=== PATIENT | male | born 1955 | race Caucasian/White ===

== ENCOUNTER 2019-02-22 10:08 | Observation (INO) | payer OTHER ==
[2019-02-18 13:02] LABS: BASOPHILS % 0.4 % (0.0-1.0); EOSINOPHILS # (AUTO) 0.1 (0.0-0.4); EOSINOPHILS % 1.2 % (0.0-6.0); HEMATOCRIT 41.5 % (38.2-49.6); HEMOGLOBIN 14.3 g/dL (14.0-18.0); LYMPHOCYTES # (AUTO) 1.4 (1.0-3.2); LYMPHOCYTES % 18.8 % (18.0-39.1); MEAN CORPUSCULAR HEMOGLOBIN 31.7 pg (28-32); MEAN CORPUSCULAR HGB CONC 34.5 g/dL (31-35); MONOCYTES # (AUTO) 0.9 (0.2-0.8); MONOCYTES % 12.6 % (4.4-11.3); NEUTROPHILS # (AUTO) 4.9 (2.1-6.9); NEUTROPHILS % 66.3 % (38.7-80.0); PLATELET COUNT 284 x10e3/uL (140-360); RED BLOOD COUNT 4.51 x10e6/uL (4.3-5.7); RED CELL DISTRIBUTION WIDTH 13.8 % (11.7-14.4)
[2019-02-18 13:11] LABS: INR 1.01; PARTIAL THROMBOPLASTIN TIME 32.5 seconds (23.8-35.5); PROTHROMBIN TIME 13.8 seconds (11.9-14.5)
--- NOTE | 2019-02-18 13:29 | Diagnostic Imaging Report ---
Chest, 2 views, 02/18/2019. History: Preop, prostate biopsy. Comparison: None available. Findings: The cardiomediastinal silhouette and pulmonary vasculature are within normal limits. The lungs are clear without evidence of consolidation or pleural effusion. Degenerative changes are present in the thoracic spine. There are no acute osseous or soft tissue abnormalities. Impression: No acute cardiopulmonary abnormality. Signed by: Donato Shaikh on 02/18/2019 1:25 PM
[2019-02-18 13:52] LABS: ALANINE AMINOTRANSFERASE 78 IU/L (0-55); ALBUMIN 3.9 g/dL (3.5-5.0); ALBUMIN/GLOBULIN RATIO 1.2 (0.8-2.0); ALKALINE PHOSPHATASE 65 IU/L (40-150); ANION GAP 10.9 mmol/L (8-16); BLOOD UREA NITROGEN 12 mg/dL (7-26); BUN/CREATININE RATIO 11 (6-25); CARBON DIOXIDE 29 mmol/L (22-29); CHLORIDE 101 mmol/L (98-107); CREATININE, SERUM 1.05 mg/dL (0.72-1.25); EST GLOMERULAR FILTRATION RATE > 60 ML/MIN (60-); GLUCOSE 72 mg/dL (74-118); POTASSIUM 3.9 mmol/L (3.5-5.1); SODIUM 137 mmol/L (136-145)
[~2019-02-22] VITALS: Ht 177.8 cm; Wt 108.2 kg
[~2019-02-22 10:08] MED LIST: ASPIRIN81 MG PO; BARACLUDE0.5 MG PO; CARVEDILOL12.5 MG PO; JAKAFI PO; LISINOPRIL-HCT1 EAC2 PO; METRONIDAZOLE500 MG PO; SIMVASTATIN20 MG PO
--- OUTSIDE RECORDS SUMMARY | 2019-02-22 10:10 | XMS REPORT | Clinical Summary ---
Author Author [facility] Address Unknown Phone Unavailable Care Team Providers Care Language Arts Teacher Name Role Phone Catie Roche PCP Allergies No Known Allergies Medications End Date Status Medication Sig Dispensed Refills Start Date Active simvastatin (ZOCOR) 20 MG Take 1 tablet 0 tablet by mouth daily. Active ruxolitinib (JAKAFI) 25 Take 25 mg by 0 mg chemo tablet mouth 2 (two) times a day. Active lisinopril-hydrochlorothi Take 1 tablet 0 azide by mouth 9 (PRINZIDE,ZESTORETIC) daily. 10-12.5 mg per tablet Active carvedilol (COREG) 12.5 Take 1 tablet 0 MG tablet by mouth daily. Active aspirin 81 mg chewable Chew 1 tablet 0 tablet daily. 03/24/2019 Active entecavir (BARACLUDE) 0.5 Take 1 tablet 90 tablet 1 MG tabletIndications: (0.5 mg 9 Hepatitis B infection total) by without delta agent mouth daily without hepatic coma, for 90 days. unspecified chronicity 01/25/2019 Discontinued fluticasone propionate 2 sprays 2 0 (FLONASE) 50 (two) times a 9 mcg/actuation nasal spray day. 01/25/2019 Discontinued traMADol (ULTRAM) 50 mg Take 50 mg by 0 tablet mouth every 6 9 (six) hours as needed. 12/24/2018 Discontinued entecavir (BARACLUDE) 0.5 Take 1 tablet 30 tablet 2 MG tabletIndications: (0.5 mg 9 Hepatitis B infection total) by without delta agent mouth daily without hepatic coma, for 30 days. unspecified chronicity Active Problems Not on file Encounters Care Team Description Date Type Specialty Daryl Sheldon MD Abnormal liver function test (Primary Dx); Hepatomegaly; Splenomegaly; Hepatitis B infection without delta agent without hepatic coma, unspecified chronicity; Abnormal CT of the abdomen; Colon cancer screening; Hepatitis C virus infection without hepatic coma, unspecified chronicity 01/25/2019 Office Visit Gastroenterology Mya Shah MA Hepatitis B infection without delta agent without hepatic coma, unspecified chronicity (Primary Dx) 01/16/2019 Telephone Gastroenterology Mya Shah MA 12/26/2018 Telephone Gastroenterology Mya Shah MA Hepatitis B infection without delta agent without hepatic coma, unspecified chronicity 12/24/2018 Refill Gastroenterology Daryl Sheldon MD Abnormal liver function test (Primary Dx); Hepatomegaly; Splenomegaly; Elevated ferritin; Colon cancer screening; Hepatitis B infection without delta agent without hepatic coma, unspecified chronicity; Abnormal CT of the abdomen 12/20/2018 Office Visit Gastroenterology Danita Martinez MA 12/20/2018 Telephone Gastroenterology Daryl Sheldon MD Abnormal liver function test; Hepatomegaly; Hepatitis C virus infection without hepatic coma, unspecified chronicity; Elevated ferritin 12/19/2018 Hospital Radiology Encounter Daryl Sheldon MD Abnormal liver function test (Primary Dx); Hepatomegaly; Splenomegaly; Hepatitis C virus infection without hepatic coma, unspecified chronicity; Elevated ferritin; Colon cancer screening 12/14/2018 Office Visit Gastroenterology after 02/21/2018 Family History Medical History Relation Name Comments Lung cancer Brother Diverticulitis Father Prostate cancer Father Relation Name Status Comments Brother Father Mother Social History Date Tobacco Use Types Packs/Day Years Used Quit: 09/11/2008 Former Smoker Smokeless Tobacco: Former Quit: 09/11/2011 User Alcohol Use Drinks/Week oz/Week Comments Yes occasionally Sex Assigned at Date Recorded Not on file Industry Job Start Date Occupation Not on file Not on file Not on file Travel End Travel History Travel Start No recent travel history available. Last Filed Vital Signs Time Taken Vital Sign Reading 01/25/2019 11:04 AM CDT Blood Pressure 115/73 01/25/2019 11:04 AM CDT Pulse 75 01/25/2019 11:04 AM CDT Temperature 36.7 C (98 F) 01/25/2019 11:04 AM CDT Respiratory Rate 12 - Oxygen Saturation - - Inhaled Oxygen - Concentration 01/25/2019 11:04 AM CDT Weight 110 kg (242 lb) 01/25/2019 11:04 AM CDT Height 177.8 cm (5' 10") 01/25/2019 11:04 AM CDT Body Mass Index 34.72 Plan of Treatment Care Team Description Date Type Specialty Daryl Sheldon MD [address] [address] [phone] 03/26/2019 Office Visit Gastroenterology Health Maintenance Due Date Last Done Comments COLONOSCOPY SCREENING 2006 SHINGLES VACCINES (#1) 2006 INFLUENZA VACCINE 04/11/2019 Procedures Comments Procedure Name Priority Date/Time Associated Diagnosis CBC WITH PLATELET AND Routine 01/24/2019 DIFFERENTIAL HEPATITIS B VIRUS DRUG Routine 01/16/2019 RESISTANCE, GENOTYPE, AND 11:13 AM CDT BCP/PRECORE MUTATIONS HBV QUANTITATIVE BY PCR Routine 01/16/2019 Hepatitis B infection 11:13 AM CDT without delta agent without hepatic coma, unspecified chronicity COMPREHENSIVE METABOLIC Routine 01/16/2019 Hepatitis B infection PANEL 11:13 AM CDT without delta agent without hepatic coma, unspecified chronicity CBC WITH PLATELET AND Routine 01/16/2019 Hepatitis B infection DIFFERENTIAL 11:13 AM CDT without delta agent without hepatic coma, unspecified chronicity HEPATITIS B VIRUS DRUG Routine 12/20/2018 RESISTANCE, GENOTYPE, AND 4:27 PM CDT BCP/PRECORE MUTATIONS TEST IN [facility]- Routine 12/20/2018 AMBIGUOUS ORDER 4:27 PM CDT HEPATITIS B SURFACE Routine 12/20/2018 Hepatitis B infection ANTIBODY 4:27 PM CDT without delta agent without hepatic coma, unspecified chronicity HEPATITIS BE AG Routine 12/20/2018 Hepatitis B infection 4:27 PM CDT without delta agent without hepatic coma, unspecified chronicity HEPATITIS BE AB Routine 12/20/2018 Hepatitis B infection 4:27 PM CDT without delta agent without hepatic coma, unspecified chronicity HBV QUANTITATIVE BY PCR Routine 12/20/2018 Hepatitis B infection 4:27 PM CDT without delta agent without hepatic coma, unspecified chronicity CT ABDOMEN PELVIS W Routine 12/19/2018 Abnormal liver function CONTRAST 11:12 AM CDT test Hepatomegaly Hepatitis C virus infection without hepatic coma, unspecified chronicity Elevated ferritin POC CREATININE Routine 12/19/2018 10:01 AM CDT ESTIMATED GFR Routine 12/19/2018 10:01 AM CDT CBC WITH PLATELET AND Routine 12/19/2018 DIFFERENTIAL after 02/21/2018 Results * CBC with platelet and differential (01/24/2019) Only the most recent of 3 results within the time period is included. Specimen Blood Narrative Performed At * Hepatitis B Virus Drug Resistance, Genotype, and BCP/Precore Mutations (01/16/2019 11:13 AM CDT) Only the most recent of 2 results within the time period is included. HBV genotype [facility] Polymerase NOT DETECTED [facility] mutations [facility] Precore NOT DETECTED [facility] BCP mutations NOT DETECTED [facility] Comment: DI[facility]NOST[facility] Antiviral drugs ResistanceMutations Pred icted ! ! Polymerase Inhibitors! ! 3TC(lamivudine or Epivir) ! NO! LDT(telbivudine or Tyzeka)! NO! FCV(famciclovir or Famvir)! NO! ADV(adefovir or Hepsera)! NO! ETV(entecavir or Baraclude) ! NO! Specimen Narrative Performed At FASTING:NO [facility] FASTING: NO Resulting Agency Comment Performing Organization Information: Site ID: [id number] Name: [facility] Address: [address] [place] [phone] Director: Justo Chino MD Performing Organization Address [facility] Phone Number [facility] [address] [place] [phone] * HBV quantitative by PCR (01/16/2019 11:13 AM CDT) Only the most recent of 2 results within the time period is included. Pathologist [facility] HBV DNA, 2038523 (H) IU/mL [facility] qualitative PCR DIAGNOSTICS HBV DNA, 6.97 (H) Log IU/mL [facility] qualitative PCR Comment: DIAGNOSTICS REFERENCE RANGE: NOT DETECTEDIU/mL NOT DETECTEDLog IU/mL This test was performed using Real-Time Polymerase Chain Reaction. Reportable range is 10 to 1,000,000,000 IU/mL (1.00-9.00 Log IU/mL). The analytical performance characteristics of this assay have been determined by [facility]. The modifications have not been cleared or approved by the FDA. This assay has been validated pursuant to the CLIA regulations and is used for clinical purposes. Specimen Blood Narrative Performed At FASTING:NO [facility] FASTING: NO Resulting Agency Comment Performing Organization Information: Site ID: [id number] Name: [facility] Address: [address] [place] [phone] Director: Justo Chino MD Performing Organization Address [facility] Phone Number [facility] [address] [place] [phone] * Comprehensive metabolic panel (01/16/2019 11:13 AM CDT) [facility] Glucose 96 65 - 139 mg/dL [facility] Comment: DIAGNOSTICS Non-fasting [facility] reference interval BUN, whole 13 7 - 25 mg/dL [facility] blood [facility] Creatinine 1.10 0.70 - 1.25 mg/dL [facility] Comment: DIAGNOSTICS For patients >49 years of age, [facility] the reference limit for Creatinine is approximately 13% higher for people identified as -[place]. EGFR Non-Afr. 72 > OR=60 [facility] [place] mL/min/1.73m2 DIAGNOSTICS [facility] EGFR 83 > OR=60 [facility] [place] mL/min/1.73m2 [facility] BUN/creatinine NOT APPLICABLE 6 - 22 (calc) [facility] ratio [facility] Sodium 137 135 - 146 mmol/L [facility] Potassium 4.0 3.5 - 5.3 mmol/L [facility] Chloride 101 98 - 110 mmol/L [facility] CO2 30 20 - 32 mmol/L [facility] Calcium 9.4 8.6 - 10.3 mg/dL [facility] Protein 6.2 6.1 - 8.1 g/dL [facility] Albumin, S 3.8 3.6 - 5.1 g/dL [facility] Globulin, total 2.4 1.9 - 3.7 g/dL [facility] (calc) [facility] Albumin/globuli 1.6 1.0 - 2.5 (calc) [facility] n ratio [facility]AG[facility] Total bilirubin 0.7 0.2 - 1.2 mg/dL [facility] Alkaline 65 40 - 115 U/L [facility] phosphatase [facility] AST 52 (H) 10 - 35 U/L [facility] ALT 72 (H) 9 - 46 U/L [facility] Specimen Blood Narrative Performed At FASTING:NO [facility] FASTING: NO Resulting Agency Comment Performing Organization Information: Site ID: [id number] [facility] Address: [address] [place] [phone] Director: Janine Chambers Performing Organization Address City/State/Zipcode Phone Number [facility] [address] [address] * TEST IN [facility]- AMBIGUOUS ORDER (12/20/2018 4:27 PM CDT) TEST IN Comment: [facility]- WE ARE UNABLE TO ASCERTAIN THE DIAGNOSTICS AMBIGUOUS ORDER TEST(S) YOU DESIRE [facility] FROM THE FOLLOWING WRITTEN ORDER. UNCLEAR ORDER: HBV DNA, QUAL, REAL TIME PCR [facility] Comment Comment: [facility] To prevent further delays in DIAGNOSTICS testing, please complete [facility] information above and fax to [phone] to resolve this order. Specimen Resulting Agency Comment Performing Organization Information: Site ID: [id number] Name: [facility] Address: [address] [place] [phone] Director: Janine Chambers Performing Organization Address [facility] Phone Number [employer] [employer] [address] [address] * Hepatitis Be Ab (12/20/2018 4:27 PM CDT) Hepatitis Be Ab NON-REACTIVE NON-REACTIVE [facility] ING II Specimen Blood Resulting Agency Comment Performing Organization Information: Site ID: [id number] [facility]: [facility] Address: [address] [place] [phone] Director: Dr. Kurtis Vang Performing Organization Address [facility] Phone Number [facility] [address] II * Hepatitis Be Ag (12/20/2018 4:27 PM CDT) Hepatitis Be Ag REACTIVE (A) NON-REACTIVE [facility] II Specimen Blood Resulting Agency Comment Performing Organization Information: Site ID: IG Name: [facility] Address: [address] [place] [phone] Director: Dr. Kurtis Vang Performing Organization Address [facility] Phone Number [employer] [address] II * Hepatitis B surface antibody (12/20/2018 4:27 PM CDT) Hepatitis B NON-REACTIVE NON-REACTIVE [facility] surface Ab DIAG[facility]ST[facility] Specimen Blood Resulting Agency Comment Performing Organization Information: Site ID: [id number] Name: [facility] Address: [address] [place] [phone] Director: Janine Chambers Performing Organization Address [facility] Phone Number [employer] [address] [address] * CT Abdomen Pelvis W Contrast (12/19/2018 11:12 AM CDT) Specimen Narrative Performed At EXAMINATION:CT ABDOMEN PELVIS W CONTRAST [facility] CLINICAL HISTORY:R94.5 Abnormal results of liver function studies, R16.0 Hepatomegalynot elsewhere classified, abnormal liver functionhepatitis C TECHNIQUE: CT of the abdomen and pelvis using multiphase liver protocol with contrast.Automatic exposure control or iterative reconstruction techniques used to reduce dose. COMPARISON:None. Impression: 1.Liver morphology is within normal limits. No CT stigmata of cirrhosis noted. Liver is not enlarged. No suspicious liver mass. 2.Right adrenal nodule measuring 2.3 cm with low-density measurements compatible with adrenal adenoma. Kidneys, left adrenal, and spleen appear unremarkable. No evidence for splenomegaly. Portal veins, splenic vein, and SMV are patent. 3.LV apex calcification noted likely due to prior myocardial infarction and should be correlated with cardiac history. 4.Bowel gas pattern is nonobstructive. No significant retroperitoneal or pelvic lymphadenopathy. Osseous structures are intact. [id number] Procedure Note Interface, Radiology Results Incoming - 12/19/2018 11:44 AM CDT EXAMINATION: CT ABDOMEN PELVIS W CONTRAST CLINICAL HISTORY: R94.5 Abnormal results of liver function studies, R16.0 Hepatomegaly not elsewhere classified, abnormal liver function hepatitis C TECHNIQUE: CT of the abdomen and pelvis using multiphase liver protocol with contrast.Automatic exposure control or iterative reconstruction techniques used to reduce dose. COMPARISON: None. Impression: 1. Liver morphology is within normal limits. No CT stigmata of cirrhosis noted. Liver is not enlarged. No suspicious liver mass. 2. Right adrenal nodule measuring 2.3 cm with low-density measurements compatible with adrenal adenoma. Kidneys, left adrenal, and spleen appear unremarkable. No evidence for splenomegaly. Portal veins, splenic vein, and SMV are patent. 3. LV apex calcification noted likely due to prior myocardial infarction and should be correlated with cardiac history. 4. Bowel gas pattern is nonobstructive. No significant retroperitoneal or pelvic lymphadenopathy. Osseous structures are intact. [id number] Performing Organization Address City/State/Zipcode Phone Number [facility] [address] [place] [address] * Estimated GFR (12/19/2018 10:01 AM CDT) Estimated GFR 80 mL/min/1.73 m2 [facility] Comment: [facility] G1 >=90 Normal or high G2 60-89Mildly decreased [id number] Mildly to moderately decreased [id number] Moderately to severely decreased G4 15-29Severely decreased G5 <15Kidney failure The eGFR was calculated using the Chronic Kidney Disease Epidemiology Collaboration (CKD-EPI) equation. Interpretation is based on recommendations of the National Kidney Foundation-Kidney Disease Outcomes Quality Initiative (NKF-KDOQI) published in 2014. Specimen Blood Performing Organization Address City/State/Zipcode Phone Number [facility] [address] [place] [address] PATHOLOGY AND GENOMIC MEDICINE [facility] [address] [place], [place] [phone] [place] [address] * POC creatinine (12/19/2018 10:01 AM CDT) POC creatinine 1.0 0.7 - 1.2 mg/dl [facility] Comment: [facility] Meter ID: [id number] [facility] Academic Affairs Coordinator: [facility] Specimen Blood Performing Organization Address City/State/Zipcode Phone Number [facility] [address] [place] [address] PATHOLOGY AND GENOMIC MEDICINE [facility] [place] [id number] [place], [place] [phone] [place] [address] after 02/21/2018 Insurance Type Payer Benefit Subscriber ID Effective Phone Address Plan / Dates Group HMO/PPO [facility] xxxxxxxxx 2018-P THCARE resent CHOICE/CHO ICE + Advance Directives Patient has advance care planning documents on file. For more information, [facility] contact: Marin Zacarias [address] [place] [address]
--- OUTSIDE RECORDS SUMMARY | 2019-02-22 10:10 | XMS REPORT ---
Author Author [facility] Address Unknown Phone Unavailable Care Team Providers Care Glass Sander Name Role Phone TIM SCHAEFER Unavailable Unavailable Problems This patient has no known problems. Allergies, Adverse Reactions, Alerts This patient has no known allergies or adverse reactions. Medications This patient has no known medications. Results Test Description Test Time Test Comments Text Results Atomic Results Result Comments CHEST 2 VIEWS 2019-02-18 13:25:00 [place] [address] Patient Name: SAGAR AGUIRRE MR #: [id number] : 1955 Age/Sex: 63/M Req #: [id number] Adm Physician: Ordered by: TIM SCHAEFER MD Report #: [id number] Location: OR Room/Bed: Procedure: [id number] DX/CHEST 2 VIEWS Exam Date: 02/18/19 Exam Time: 1243 REPORT STATUS: Signed Chest, 2 views, 02/18/2019. History: Preop, p rostate biopsy. Comparison: None available. Findings: The cardiomediastinal silhouette and pulmonary vasculature are within normal limits. The lungs are clear without evidence of consolidation or pleural effusion. Degenerative changes are present in the thoracic spine. There are no acute osseous or soft tissue abnormalities. Impression: No acute cardiopulmonary abnormality. Signed by: Virginia Shaikh on 02/18/2019 1:25 PM Dictated By: VIRGINIA SHAIKH MD 1325 Transcribed By: JO ANN on 02/18/19 1325 COPY TO: TIM SCHAEFER MD
[2019-02-22] MEDS ORDERED: CEFOXITIN 1GM/ D5W 50ML 50 ML IV ONE (10:38)
[2019-02-22] MEDS ORDERED: HYDROCODONE/APAP 7.5MG-325MG 1 EA TAB PO PRN (12:30)
--- OUTSIDE RECORDS SUMMARY | 2019-02-22 13:03 | XMS REPORT | Clinical Summary ---
Author Author [facility] Address Unknown Phone Unavailable Care Team Providers Care Health Information Managers Name Role Phone Catie Roche PCP Allergies [...] Date Type Specialty Daryl Sheldon MD [address] [address] [phone] 03/26/2019 Office Visit Gastroenterology Health Maintenance Due [...] Performing Organization Information: Site ID: [id number] Name: [facility] Address: [address] [place] [phone] Director: Justo Chino MD Performing Organization Address [facility] Phone Number [employer] [address] [place] [phone] * HBV quantitative by PCR (01/16/2019 11:13 AM CDT) Only the most recent of 2 results within the time period is included. Pathologist [facility] HBV DNA, [id number] (H) IU/mL [facility] qualitative PCR DIAGNOSTICS HBV DNA, 6.97 (H) Log IU/mL [facility] qualitative PCR Comment: DIAGNOSTICS REFERENCE RANGE: NOT DETECTEDIU/mL NOT DETECTEDLog IU/mL This test was performed using Real-Time Polymerase Chain Reaction. Reportable range is 10 to 1,000,000,000 IU/mL (1.00-9.00 Log IU/mL). The analytical performance characteristics of this assay have been determined by [facility]. The modifications have not been cleared or approved by the FDA. This assay has been validated pursuant to the CLIA regulations and is used for clinical purposes. Specimen Blood Narrative Performed At FASTING:NO [facility] FASTING: NO Resulting Agency Comment Performing Organization Information: Site ID: [id number] Name: [facility] [employer] Address: [address] [place] [phone] Director: Justo Chino MD Performing Organization Address [facility] Phone Number [facility] [address] [place] [phone] * Comprehensive metabolic panel (01/16/2019 11:13 AM CDT) [facility] Glucose 96 65 - 139 mg/dL [facility] Comment: DIAGNOSTICS Non-fasting [place] reference interval BUN, whole 13 7 - 25 mg/dL [facility] blood [facility]AG[facility] [place] Creatinine 1.10 0.70 - 1.25 mg/dL [facility] Comment: DIAGNOSTICS For patients >49 years of age, [place] the reference limit for Creatinine is approximately 13% higher for people identified as -Chinese. EGFR Non-Afr. 72 > OR=60 [facility] Chinese mL/min/1.73m2 DIAGNOSTICS [place] EGFR 83 > OR=60 [facility] Chinese mL/min/1.73m2 DIAGNOSTICS [place] BUN/creatinine NOT APPLICABLE 6 - 22 (calc) [facility] ratio [facility]AG[facility] [place] Sodium 137 135 - 146 mmol/L [facility] [place] Potassium 4.0 3.5 - 5.3 mmol/L [facility] [place] Chloride 101 98 - 110 mmol/L [facility] [place] CO2 30 20 - 32 mmol/L [facility] [place] Calcium 9.4 8.6 - 10.3 mg/dL [facility] [place] Protein 6.2 6.1 - 8.1 g/dL [facility] [place] Albumin, S 3.8 3.6 - 5.1 g/dL [facility] [place] Globulin, total 2.4 1.9 - 3.7 g/dL [facility] (calc) DIAGNOSTICS [place] Albumin/globuli 1.6 1.0 - 2.5 (calc) [facility] n ratio DIAGNOSTICS [place] Total bilirubin 0.7 0.2 - 1.2 mg/dL [facility] [place] Alkaline 65 40 - 115 U/L [facility] phosphatase [facility]ST[facility] [place] AST 52 (H) 10 - 35 U/L [facility] [place] ALT 72 (H) 9 - 46 U/L [facility] [place] Specimen Blood Narrative Performed At FASTING:NO [facility] FASTING: NO Resulting Agency Comment Performing Organization Information: Site ID: [id number] Name: [facility] Address: [address] [place] [phone] Director: Janine Chambers Performing Organization Address City/State/Zipcode Phone Number [facility] [address] [address] * TEST IN [facility]- AMBIGUOUS ORDER (12/20/2018 4:27 PM CDT) TEST IN Comment: [facility]- WE ARE UNABLE TO ASCERTAIN THE DIAGNOSTICS AMBIGUOUS ORDER TEST(S) YOU DESIRE [place] FROM THE FOLLOWING WRITTEN ORDER. UNCLEAR ORDER: HBV DNA, QUAL, REAL TIME PCR [facility] [place] Comment Comment: [facility] To prevent further delays in DIAGNOSTICS testing, please complete [place] information above and fax to [phone] to resolve this order. Specimen Resulting Agency Comment Performing Organization Information: Site ID: [id number] Name: [facility] Address: [address] [place] [phone] Director: Janine Chambers Performing Organization Address [facility] Phone Number [facility] [address] [address] * Hepatitis Be Ab (12/20/2018 4:27 PM CDT) Hepatitis Be Ab NON-REACTIVE NON-REACTIVE [facility]-IRAJ ING II Specimen Blood Resulting Agency Comment Performing Organization Information: Site ID: [id number] Name: [facility] Address: [address] [place] [phone] Director: Dr. Kurtis Vang Performing Organization Address [facility] Phone Number [facility] [address] II * Hepatitis Be Ag (12/20/2018 4:27 PM CDT) Hepatitis Be Ag REACTIVE (A) NON-REACTIVE [facility]IRAJ ING II Specimen Blood Resulting Agency Comment Performing Organization Information: Site ID: [id number] Name: [facility] Address: [address] [place] [phone] Director: Dr. Kurtis Vang Performing Organization Address [facility] Phone Number [facility] [address] II * Hepatitis B surface antibody (12/20/2018 4:27 PM CDT) Hepatitis B NON-REACTIVE NON-REACTIVE [facility] surface Ab DIAGNOSTICS [place] Specimen Blood Resulting Agency Comment Performing Organization Information: Site ID: [id number] Name: [facility] Address: [address] [place] [phone] Director: Janine Chambers Performing Organization Address [facility] Phone Number [facility] [address] [address] * CT Abdomen Pelvis W [...] or pelvic lymphadenopathy. Osseous structures are intact. [id number] Procedure Note Interface, Radiology Results Incoming - [...] or pelvic lymphadenopathy. Osseous structures are intact. [id number] Performing Organization Address City/State/Zipcode Phone Number [facility] [address] [place] [address] * Estimated GFR (12/19/2018 10:01 AM CDT) Estimated GFR 80 mL/min/1.73 m2 [place] Comment: [place] [facility] G1 >=90 Normal or high G2 60-89Mildly decreased [id number] Mildly to moderately decreased [id number] Moderately to severely decreased G4 15-29Severely decreased G5 <15Kidney failure The eGFR was calculated using the Chronic Kidney Disease Epidemiology Collaboration (CKD-EPI) equation. Interpretation is based on recommendations of the National Kidney Foundation-Kidney Disease Outcomes Quality Initiative (NKF-KDOQI) published in 2014. Specimen Blood Performing Organization Address City/State/Zipcode Phone Number [facility] DEPARTMENT OF [address] [place] [address] PATHOLOGY AND GENOMIC MEDICINE [place] LEIGHTON JUNIOR [address] [place], [place] [id number] [place] [address] * POC creatinine (12/19/2018 10:01 AM CDT) POC creatinine 1.0 0.7 - 1.2 mg/dl [place] Comment: LEIGHTON JUNIOR Meter ID: [id number] [facility] Senior C Software Developer: [facility] Specimen Blood Performing Organization Address City/State/Zipcode Phone Number [facility] DEPARTMENT OF [address] [place] [address] PATHOLOGY AND GENOMIC MEDICINE [place] [id number] [place], [place] [id number] [place] [address] after 02/21/2018 Insurance Type Payer Benefit Subscriber ID Effective Phone Address Plan / Dates Group HMO/PPO [facility] xxxxxxxxx 2018-P THCARE resent CHOICE/CHO ICE + Advance Directives Patient has advance care planning documents on file. For more information, ivis [facility] contact: Marin Zacarias [address] [place] [address]
[2019-02-22 13:30] VITALS: BP 135/67
--- NOTE | 2019-02-22 13:30 | NUR ---
RECEIVED PT VIA STRETCHER FROM PACU, DENIES PAIN. RESP EVEN AND UNLABORED. SAFELY TRANSFERRED FROM STRETCHER TO BED WITH SUPERVISION. ORIENTED TO ROOM AND USE OF CALL LIGHT. CALL LIGHT PLACED WITHIN REACH. AT BEDISDE. SCDS IN PLACE. BED IN LOW AND LOCKED POSITION.
--- NOTE | 2019-02-22 13:53 | NUR ---
PATIENT ON CLEAR LIQUID DIET. CHICKEN BROTH, ICE WATER, APPLE JUICE AND JELLO PROVIDED.
[2019-02-22] MEDS: SODIUM CHLORIDE 0.9% 1000ML 1,000 ML IV SCH (13:59)
[2019-02-22 14:12] VITALS: BP 135/67
[2019-02-22] MEDS ORDERED: MIDAZOLAM HCL 2 MG/2 ML VIAL ONE (14:13)
[2019-02-22 14:31] VITALS: BP 135/67
[2019-02-22] MEDS: METRONIDAZOLE 500 MG TAB PO SCH ×2 (14:50→21:00)
[2019-02-22] MEDS ORDERED: DEXAMETHASONE SOD PHOS INJ 4 MG/ML VIAL ONE (15:38)
[2019-02-22] MEDS ORDERED: SEVOFLURANE INHAL SOLN 250 ML PEN BTL ONE (15:38)
[2019-02-22] MEDS ORDERED: LIDOCAINE HCL 2% LOCAL INJ 5 ML SDV VIAL INJ ONE (15:38)
[2019-02-22] MEDS ORDERED: ONDANSETRON HCL INJ 2MG/ML 2ML 2 MG/ML VIAL ONE (15:38)
[2019-02-22] MEDS ORDERED: PROPOFOL IV EMULSION 10 MG/ML 20 ML VIAL ONE (15:38)
[2019-02-22 16:32] VITALS: BP 112/64
[2019-02-22] MEDS: CARVEDILOL 12.5 MG TAB PO SCH (17:00)
[2019-02-22] MEDS: DOCUSATE SODIUM 100 MG CAP PO SCH (17:22)
[2019-02-22] MEDS: CEFOXITIN 1GM/ D5W 50ML 50 ML IV SCH (17:22)
--- NOTE | 2019-02-22 18:12 | NUR ---
pt reports feeling anxious due to having to have Delatorre cath in place s/p urology procedure. this nurse questioned patient about possibility of being bladder spasm or pain and states "No, i just feel nervous and cant relax knowing i have this thing." Paged to notify.
[2019-02-22 19:30] VITALS: BP 114/81
--- NOTE | 2019-02-22 20:14 | Operative Report ---
DATE OF PROCEDURE: 02/22/2019 SURGEON: Ricky Lomeli MD PREOPERATIVE DIAGNOSIS: Elevated prostate-specific antigen. POSTOPERATIVE DIAGNOSIS: Elevated prostate-specific antigen. OPERATION PERFORMED: Ultrasound-directed transrectal prostate biopsy. ANESTHESIA: General. INDICATIONS: This patient is a 63-year-old white male, who has had a consistently elevated prostate-specific antigen going from 9.5-10 to 11.29. He now agrees to have a prostate biopsy performed. His prostate did not feel malignant. The patient's past medical history is remarkable for hepatitis C and the patient has also been treated for hepatitis A. He has history of arteriosclerotic cardiovascular disease, hypertension, and fatty infiltration of the liver, and he also has a history significant for myelofibrosis, intervertebral disk degeneration, hypercholesterolemia, and a past history of a heart attack. For further details, please refer to the history and physical. DESCRIPTION OF PROCEDURE: The patient was taken to the operating room and placed under general anesthesia and placed in a modified lateral decubitus position with the right side up. An ultrasound scan of the prostate was performed and this revealed evidence of about a 25 g prostate. There were numerous internal calcifications. No discrete hypoechoic areas. The seminal vesicles appeared normal. Sextant biopsies of the prostate were performed using the Bard biopsy gun through the ultrasound probe. Specimens were taken from the right base lateral, then right base medial, then right mid lateral, then right mid medial, then right apex lateral, then right apex medial, and then left base lateral, then left base medial, then left mid lateral, then left mid medial, then left apex lateral, then left apex medial. Once this was accomplished, the ultrasound probe was removed and the patient returned to the supine position. An 18-Icelandic Delatorre catheter was inserted. The patient had a little bit of blood in the urine and a few little blood clots. The patient tolerated the procedure well, left the operative room in good condition. He will be monitored overnight by Dr. Jackson, who was covering for me and Dr. Gaming and Dr. Stevenson will be available to cover for me during my absence. My plan at this time is to have the patient have a Delatorre catheter removed in the morning for trial of voiding and if he can urinate tomorrow okay and if he does have a fever, he can then go home on Macrobid. He will have return appointment to see me again in two weeks. Ricky Lomeli MD SRA/MAKIL /[id number]
[2019-02-22 20:37] VITALS: BP 114/81
[2019-02-22] MEDS ORDERED: SIMVASTATIN 20 MG TAB PO SCH (21:00)
--- NOTE | 2019-02-22 21:00 | NUR ---
Aaox4.ambulates .no resp.distress.had loose bowel movement.pain voiced 01/18.medicated with norco7.5 mg po.bed locked and in lowest position.phone and call light within reach.informed to call for assistance as needed.
--- NOTE | 2019-02-22 21:30 | NUR ---
Patient state that "now he is relaxed.no anxiety."provided snacks.patel care given.keep monitor the pt.
[2019-02-23] MEDS: CEFOXITIN 1GM/ D5W 50ML 50 ML IV SCH ×3 (00:29→12:01)
[2019-02-23] MEDS: SODIUM CHLORIDE 0.9% 1000ML 1,000 ML IV SCH ×2 (00:29→08:35)
[2019-02-23 00:42] VITALS: BP 95/67
--- NOTE | 2019-02-23 00:55 | NUR ---
Report given to Mei Mireles.
[2019-02-23 04:29] VITALS: BP 98/62
--- NOTE | 2019-02-23 07:09 | NUR ---
REPORT GIVEN TO ONCOMING NURSE,WALKING ROUNDS MADE.PT RESTING IN BED WITH NO S/S OF DISTRESS.
--- NOTE | 2019-02-23 07:17 | NUR ---
received pt lying in bed with eyes open and TV on. denies pain at this time. call light within reach.
[2019-02-23 08:11] VITALS: BP 113/56
[2019-02-23 08:22] VITALS: BP 113/56
[2019-02-23] MEDS: CARVEDILOL 12.5 MG TAB PO SCH (08:35)
[2019-02-23] MEDS: DOCUSATE SODIUM 100 MG CAP PO SCH (08:35)
[2019-02-23] MEDS: METRONIDAZOLE 500 MG TAB PO SCH (08:35)
[2019-02-23] MEDS ORDERED: ASPIRIN 81 MG CHEW TAB PO SCH (09:00)
[2019-02-23 11:43] VITALS: BP 128/56
[2019-02-23 12:13] LABS: BASOPHILS % 0.1 % (0.0-1.0); EOSINOPHILS % 0.3 % (0.0-6.0); HEMATOCRIT 34.8 % (38.2-49.6); HEMOGLOBIN 11.8 g/dL (14.0-18.0); LYMPHOCYTES # (AUTO) 1.1 (1.0-3.2); LYMPHOCYTES % 12.4 % (18.0-39.1); MEAN CORPUSCULAR HEMOGLOBIN 31.6 pg (28-32); MEAN CORPUSCULAR HGB CONC 33.9 g/dL (31-35); MONOCYTES # (AUTO) 1.1 (0.2-0.8); MONOCYTES % 12.7 % (4.4-11.3); NEUTROPHILS # (AUTO) 6.4 (2.1-6.9); NEUTROPHILS % 73.9 % (38.7-80.0); PLATELET COUNT 227 x10e3/uL (140-360); RED BLOOD COUNT 3.74 x10e6/uL (4.3-5.7); RED CELL DISTRIBUTION WIDTH 14.1 % (11.7-14.4)
[2019-02-23 12:29] LABS: BLOOD UREA NITROGEN 9 mg/dL (7-26); BUN/CREATININE RATIO 11 (6-25); CALCIUM 8.3 mg/dL (8.4-10.2); CARBON DIOXIDE 25 mmol/L (22-29); CHLORIDE 103 mmol/L (98-107); CREATININE, SERUM 0.82 mg/dL (0.72-1.25); EST GLOMERULAR FILTRATION RATE > 60 ML/MIN (60-); GLUCOSE 81 mg/dL (74-118); SODIUM 134 mmol/L (136-145)
--- NOTE | 2019-02-23 13:35 | NUR ---
PIV removed with tip intact. patient escorted to front lobby door where picked up patient in private auto. all personal belongings, RX and d/c instructions in hand at time of d/c. safely transferred into private auto.
--- NOTE | 2019-02-23 21:29 | History and Physical ---
REPORT TITLE: History and Physical and Discharge Summary as the patient had a procedure and discharge this following day. BODY AFTER REPORT TITLE: CHIEF COMPLAINT: Status post prostate biopsy. HISTORY OF PRESENT ILLNESS: This is a 63-year-old male, who had a scheduled prostate biopsy that was performed yesterday on 02/22/[address] Ricky Lomeli. Postoperatively, the patient did well with no complaints. The patient was kept overnight to be monitored very closely as per Dr. Lomeli' request. The patient maintained on IV antibiotics overnight while here in the hospital stay with no issues. The patient will need to follow up with Dr. Lomeli as an outpatient for the biopsy results. Labs reviewed here, were found to be within normal range with no evidence of any fever and also no evidence of any white count. The patient will be discharged on oral Macrobid. The patient was seen and evaluated at bedside on the medical floor, currently he is doing well with no complaints. He denies any hematuria already, but does complain of mild dysuria. The patient is tolerating diet well with no complaints. REVIEW OF SYSTEMS: Pertinent positives: Enlarged prostate. Pertinent negatives: Denies any chest pain, palpitation, nausea, vomiting, diarrhea, dysuria, hematuria, frequency, urgency, lightheadedness, dizziness, abdominal pain, headaches, shortness of breath, cough, congestion, fever, or any other complaints. The rest of 14-point review of systems are reviewed with the patient and are negative. ALLERGIES: NO KNOWN DRUG ALLERGIES. HOME MEDICATIONS: 1. Entecavir 0.5 mg daily. 2. Lisinopril/hydrochlorothiazide 10/12.5 mg one tab p.o. daily. 3. Jakafi 25 mg b.i.d. 4. Aspirin 81 mg daily. 5. Coreg 12.5 mg p.o. b.i.d. 6. Metronidazole 500 mg p.o. t.i.d. 7. Simvastatin 20 mg daily. PAST MEDICAL HISTORY: He has prostate enlargement, hyperlipidemia, and hypertension. SOCIAL HISTORY: No drugs, no alcohol, does not smoke. Good social support. FAMILY HISTORY: Hypertension and diabetes. PAST SURGICAL HISTORY: Reports none. PHYSICAL EXAMINATION: VITAL SIGNS: Temperature is 96.9, pulse 64, respirations 18, blood pressure 120/56, and pulse ox 100% on room air. GENERAL: In no acute distress, alert and oriented x3, cooperative on examination. HEENT: Normocephalic, atraumatic. Eyes, pupils equal, round, reactive to light bilaterally. Extraocular movements are intact. Throat, no evidence of exudates in the posterior pharynx. Has poor dentition. NECK: Supple. Good range of motion. PULMONARY: Clear to auscultation bilaterally. No wheezing, no rales, and no rhonchi. No crackles appreciated. CARDIOVASCULAR: Positive S1, S2. No murmurs, rubs, or gallops. ABDOMEN: Soft, nondistended, nontender to palpation. Bowel sounds present. MUSCULOSKELETAL: Strength is 5/5 throughout. No evidence of any muscle deficits on examination. NEUROLOGIC: Cranial nerves II through XII grossly intact. No evidence of any neurological deficits on exam. SKIN: Intact. Warm to touch. Good cap refill. PSYCHIATRIC: Normal affect and mood. EXTREMITIES: No edema. Good range of motion throughout. LAB FINDINGS: Show white count is 8.6, hemoglobin 8.8, hematocrit is 35, and platelets of 227. Coagulation, PT 13, INR 1, and PTT 32.5. Chemistry, sodium 134, potassium 4, chloride 103, bicarb 25, anion gap is 10, BUN is 9, creatinine is 0.82, and calcium is 8.3. IMAGING STUDIES: Chest x-ray on 02/18/2019 was found to be negative. Prostate biopsy will be reviewed in the Urology Clinic. IMPRESSION: 1. Benign prostatic hypertrophy, status post prostate biopsy with no postoperative complications. 2. Hyperlipidemia. 3. Hypertension. PLAN: At this time, the patient is doing very well. He was on IV antibiotics overnight with no issues. There is no evidence of any fever. His white count is normal. I discussed this case with Dr. Harrell, Urology and recommends oral Macrobid as a normal prophylaxis at 100 mg p.o. b.i.d., which I gave him 10 days worth. Also, given some Pyridium as he was complaining of some underlying dysuria. Otherwise, he is going to resume same home medications with no changes. We will continue with antibiotics and I wrote scripts for. He is otherwise has been cleared by Urology already to follow up with Urology in the next 1-2 weeks to get the biopsy report from the prostate. Otherwise, he is stable, doing well with no complaints. Tolerating diet well. The patient will be discharged home. MD GUERO Castaneda/TENZIN /[id number]
--- NOTE | 2019-02-26 20:54 | Diagnostic Imaging Report ---
ADDENDUM #1 History: Elevated PSA Signed by: Dr. Lavinia Jacobs MD on 03/04/2019 6:30 AM ORIGINAL REPORT TECHNIQUE: Transrectal ultrasound of the prostate. Sonographic guidance was provided to Dr. Ricky Lomeli for the purposes of a transrectal prostate biopsy. FINDINGS: The seminal vesicles are present and unremarkable.. The gland size measures 3.2 x 4.6 x 3.3 cm. Volume is 25.3 cubic cm. The peripheral zone is homogeneous without focal nodules. The transition zone demonstrates heterogeneous echotexture suggestive of BPH. IMPRESSION: As above. Signed by: Dr. Lavinia Jacobs MD on 02/26/2019 8:51 PM
== END 2019-02-23 13:35 | disposition home or self-care (01) ==
LOC: OR 10:08 → PACU V 12:33 → MED/SURG 13:39
PROVIDERS: ADMIT Urology; ATTEND Urology
DX: N40.1 Benign prostatic hyperplasia with lower urinary tract symptoms (principal); I10 Essential (primary) hypertension; B18.2 Chronic viral hepatitis C; I25.10 Atherosclerotic heart disease of native coronary artery without angina pectoris; J32.9 Chronic sinusitis, unspecified; K76.0 Fatty (change of) liver, not elsewhere classified; I25.2 Old myocardial infarction; E78.00 Pure hypercholesterolemia, unspecified; D75.81 Myelofibrosis; R35.1 Nocturia; Z95.5 Presence of coronary angioplasty implant and graft
CPT/HCPCS: 36415 ×2; 55700; 71046; 76872; 76998; 80048; 80053; 85025 ×2; 85610; 85730; 88305; G0378 ×2; J1100; J2001; J2250; J2405; J2704; J7030 ×2